=== PATIENT | male | born 1960 | race Caucasian/White ===

== ENCOUNTER → 2022-12-21 | Outpatient (CLI) | payer OTHER ==
[2022-12-28 11:08] LABS: COTININE <10.0 ng/mL (.); NICOTINE <10.0 ng/mL (.)
== END | disposition home or self-care (01) ==
LOC: LAB 09:10 → LAB SHORT 09:10 → LAB FUT 05-05 14:00 → EDSTATUS 05-05 14:00
PROVIDERS: Neurological Surgery
DX: Z01.812 Encounter for preprocedural laboratory examination (principal); E78.00 Pure hypercholesterolemia, unspecified; M48.062 Spinal stenosis, lumbar region with neurogenic claudication; I10 Essential (primary) hypertension
CPT/HCPCS: G0480

== ENCOUNTER → 2025-08-20 | Outpatient (CLI) | payer MEDICARE, OTHER | LOC: LAB SHORT 07:54 → LAB 07:54 | DX: M79.89 Other specified soft tissue disorders (principal) | CPT/HCPCS: 84550 ==